=== PATIENT | male | born 1965 | race Caucasian/White ===

== ENCOUNTER 2019-11-11 05:51 | Day surgery (SDC) | payer OTHER ==
[2019-11-11] MEDS ORDERED: Lactated Ringers 1,000 ML IV SCH (06:30)
[2019-11-11] MEDS ORDERED: DIPRIVAN 200 MG/20 ML IV ONE ×2 (06:56→07:08)
--- NOTE | 2019-11-11 08:15 | OP ---
SURGERY DATE/TIME: 11/11/2019 0700 PREOPERATIVE DIAGNOSIS: Screening exam. POSTOPERATIVE DIAGNOSIS: Paroxysmal sigmoid colon polyp. PROCEDURE: Colonoscopy with hot snare polypectomy. SURGEON: Dr. Limon. ANESTHESIA: MAC. Medications given by anesthesia department. HISTORY: The patient is a 54 year-old white male presenting now for his first screening colonoscopy. The patient was appraised of the risks of the procedure including the risk of perforation, phlebitis, untoward reaction to medication, bleeding and missed lesions. The patient verbalized his understanding and desired to have the procedure performed. DESCRIPTION OF PROCEDURE: The patient was given the medications by the anesthesia department. He had continuous pulse oximetry, ECG monitoring, intermittent blood pressure monitoring and tidal CO2 monitoring during the examination. He was placed in the left lateral decubitus position. A digital rectal examination was performed and revealed normal anal sphincter tone, no masses and normal prostate. The flexible Olympus pediatric colonoscope was used to intubate the rectum. A view of the colon was developed sequentially to the cecum. Upon insertion and withdrawal was noted a polyp that was pedunculated measuring approximately 1.5 cm in length this was removed using hot snare and retrieved for pathologic evaluation. Upon insertion and withdrawal including retroflex view in the rectum, no other mucosal lesions being encountered the scope was removed from the patient who tolerated the procedure well and was sent back to OP recovery in good condition. The prep was noted to be fair to good.
[2019-11-11 08:19] VITALS: BP 150/87; PULSE 64; O2SAT 98
== END 2019-11-11 08:31 | disposition home or self-care (01) ==
LOC: SDC 05:51
PROVIDERS: ATTEND Family Medicine
DX: Z12.11 Encounter for screening for malignant neoplasm of colon (principal); D12.5 Benign neoplasm of sigmoid colon
CPT/HCPCS: 88305; J2704

== ENCOUNTER 2022-12-15 05:56 | Day surgery (SDC) | payer OTHER ==
[2022-12-15] MEDS ORDERED: Lactated Ringers 1,000 ML IV SCH (06:30)
[2022-12-15] MEDS ORDERED: DIPRIVAN 200 MG/20 ML IV ONE ×2 (07:50→07:57)
[2022-12-15] MEDS ORDERED: Versed 2 MG/2 ML Injection ONE (07:51)
[2022-12-15 08:54] VITALS: BP 118/78; PULSE 69; O2SAT 97
--- NOTE | 2022-12-15 13:01 | OP ---
SURGERY DATE/TIME: 12/15/2022 0751 PREOPERATIVE DIAGNOSIS: Screening exam, history of colon polyps. POSTOPERATIVE DIAGNOSIS: Normal colon. PROCEDURE: Colonoscopy. SURGEON: Dr. Limon. ANESTHESIA: MAC. Medications given by anesthesia department. HISTORY: The patient is a 57-year-old white male patient who presents now for re-evaluation. He previously had polyps removed. The patient was felt the need to have endoscopic evaluation. He was appraised of the risks of the procedure including the risk of perforation, phlebitis, untoward reaction to medication, bleeding and missed lesions. The patient verbalized his understanding and desired to have the procedure performed. DESCRIPTION OF PROCEDURE: The patient was given the medications by the anesthesia department. He had continuous pulse oximetry, ECG monitoring and intermittent blood pressure monitoring during the examination. He was placed in the left lateral decubitus position. A digital rectal examination was performed and revealed normal anal sphincter tone, no masses and normal prostate. The flexible Olympus pediatric colonoscope was used to intubate the rectum. A view of the colon was developed sequentially to the cecum. Upon insertion and withdrawal, including a retroflex view in the rectum, no mucosal lesions were encountered. The scope was removed from the patient who tolerated the procedure well and was sent back to OP recovery in good condition. The prep was noted to be fair to good.
== END 2022-12-15 09:00 | disposition home or self-care (01) ==
LOC: SDC 05:56
PROVIDERS: ATTEND Family Medicine
DX: Z09 Encounter for follow-up examination after completed treatment for conditions other than malignant neoplasm (principal); Z86.010 Personal history of colon polyps
CPT/HCPCS: J2250; J2704